=== PATIENT | male | born 1960 | race Caucasian/White ===

== ENCOUNTER 2023-07-01 10:09 | Day surgery (SDC) | payer OTHER ==
[2023-06-29 16:33] VITALS: BMI 29.1
[2023-07-01 10:55] VITALS: TEMP 97
[2023-07-01] MEDS ORDERED: GLYCOPYRROLATE 0.2 MG/1 ML VIAL ONE (12:09)
[2023-07-01 13:29] VITALS: BP 132/78; PULSE 73; RESP 19
== END 2023-07-01 13:29 | disposition home or self-care (01) ==
LOC: FASU-ENDO 10:09
PROVIDERS: ATTEND Internal Medicine Gastroenterology
PROC: 0DBL8ZX Excision of Transverse Colon, Via Natural or Artificial Opening Endoscopic, Diagnostic (ICD-10-PCS; 2023-07-01)
PROC: 0DBH8ZX Excision of Cecum, Via Natural or Artificial Opening Endoscopic, Diagnostic (ICD-10-PCS; principal; 2023-07-01 12:18)
DX: Z12.11 Encounter for screening for malignant neoplasm of colon (principal); D12.0 Benign neoplasm of cecum; D12.3 Benign neoplasm of transverse colon; K64.1 Second degree hemorrhoids; K57.30 Diverticulosis of large intestine without perforation or abscess without bleeding; Z86.010 Personal history of colon polyps

== ENCOUNTER 2024-07-06 12:25 | Emergency (ER) | payer OTHER ==
[2024-07-06 12:47] VITALS: BP 155/86; PULSE 80; RESP 16; TEMP 98.1; BMI 28.3
[2024-07-06] MEDS ORDERED: KETOROLAC TROMETHAMINE 30 MG/1 ML VIAL ONE (13:02)
[2024-07-06] MEDS: KETOROLAC TROMETHAMINE 15 MG/ML VIAL IM ONE (13:05)
== END 2024-07-06 14:39 | disposition home or self-care (01) ==
LOC: FER 12:25
PROC: 3E0233Z Introduction of Anti-inflammatory into Muscle, Percutaneous Approach (ICD-10-PCS; principal; 2024-07-06)
DX: R10.9 Unspecified abdominal pain (principal)
CPT/HCPCS: 74176-TC; 81003; 87086; 99284-25